=== PATIENT | female | born 1990 | race Caucasian/White ===

== ENCOUNTER 2020-02-28 21:21 | Emergency (ER) | payer MEDICAID ==
[~2020-02-28] VITALS: Ht 162.6 cm; Wt 68.0 kg
[2020-02-28 22:13] VITALS: BP 102/66
[2020-02-28] MEDS ORDERED: KETOROLAC TROMETHAMINE INJ 60 MG/2 ML VIAL IM ONE ×2 (22:30→23:07)
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
--- NOTE | 2020-02-28 22:51 | NUR ---
TAKEN TO CT BY TURNING AND BEADING MACHINE OPERATOR
--- NOTE | 2020-02-28 23:00 | NUR ---
RETURNED FROM CT VIA WHEELCHAIR BY BLOOD SPLATTER ANALYST.
--- NOTE | 2020-02-29 00:19 | NUR ---
PATIENT IS AMBULATORY WITH A STEADY GAIT. PRESCRIPTIONS PROVIDED AND EXPLAINED TO THE PAITNET.
--- NOTE | 2020-02-29 00:19 | NUR ---
Patient discharged to home in stable condition. Written and verbal after care instructions given. Patient verbalizes understanding of instruction.
== END 2020-02-29 00:20 | disposition home or self-care (01) ==
LOC: ER 21:28
DX: M54.42 Lumbago with sciatica, left side (principal); M79.7 Fibromyalgia; V49.49XA Driver injured in collision with other motor vehicles in traffic accident, initial encounter; Y93.89 Activity, other specified; Y92.488 Other paved roadways as the place of occurrence of the external cause; Y99.8 Other external cause status
CPT/HCPCS: 72125; 96372; 99284; J1885

== ENCOUNTER 2021-02-25 09:49 | Inpatient (IN) | payer MEDICAID, OTHER ==
[~2021-02-25] VITALS: Ht 162.6 cm; Wt 72.6 kg
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
[2021-02-25] MEDS ORDERED: oxyCODONE/APAP (5/325 MG) 1 UDTAB TABLET ONE (10:25)
[2021-02-25] MEDS ORDERED: KETOROLAC TROMETHAMINE INJ 30 MG/ML VIAL ONE (10:29)
[2021-02-25] MEDS ORDERED: LIDOCAINE 1% INJ 50 ML MDV IJ ONE (10:30)
[2021-02-25] MEDS ORDERED: TDAP [DIPH/PERTUSSIS/TET] 0.5 ML VIAL IM ONE ×2 (10:30→10:36)
[2021-02-25] MEDS ORDERED: oxyCODONE/APAP (5/325 MG) 1 UDTAB TABLET PO ONE (10:30)
[2021-02-25] MEDS ORDERED: KETOROLAC TROMETHAMINE INJ 60 MG/2 ML VIAL IM ONE (10:30)
--- NOTE | 2021-02-25 10:40 | NUR ---
WOUND BEING CLEANED BY JOYCELYN RICARDO
[2021-02-25] MEDS ORDERED: OXYC-128 PO (10:58)
[2021-02-25] MEDS ORDERED: IBUP-1955 PO (10:58)
[2021-02-25] MEDS ORDERED: CEPH500C2 PO (10:59)
[2021-02-25] MEDS ORDERED: LORAZEPAM INJ 2 MG/ML VIAL ONE (11:15)
--- NOTE | 2021-02-25 11:29 | NUR ---
IV LINE ESTABLISHED @ [facility] G18
[2021-02-25] MEDS ORDERED: LORAZEPAM INJ 2 MG/ML VIAL IV ONE (11:30)
[2021-02-25] MEDS ORDERED: IV NS 0.9% 1,000 ML BAG IV ONE (11:30)
[2021-02-25 11:34] LABS: BASOPHILS % (AUTO) 0.4 % (0.0-2.0); EOSINOPHILS % (AUTO) 0.6 % (0.0-6.0); HEMATOCRIT 42 % (33-45); HEMOGLOBIN 14.7 g/dL (11.5-14.8); LYMPHOCYTES # (AUTO) 2.1 K/uL (0.8-4.8); LYMPHOCYTES % (AUTO) 23.8 % (20.0-44.0); MEAN CORPUSCULAR HGB CONC 35 g/dl (31.0-36.0); MEAN CORPUSCULAR VOLUME 94 fL (82-100); MONOCYTES # (AUTO) 0.6 K/uL (0.1-1.30); MONOCYTES % (AUTO) 6.7 % (2.0-12.0); NEUTROPHILS # (AUTO) 6.1 K/uL (1.8-8.9); NEUTROPHILS % (AUTO) 68.5 % (43.0-81.0); PLATELET COUNT (AUTO) 256 K/uL (150-450); RED BLOOD CELL COUNT(AUTO) 4.47 MIL/uL (4.0-5.2); WHITE BLOOD COUNT (AUTO) 8.8 K/uL (4.3-11.0)
[2021-02-25 11:48] LABS: CALCIUM, SERUM 9.2 mg/dL (8.5-10.1); CREATININE 0.6 mg/dL (0.6-1.3); POTASSIUM 3.9 mmol/L (3.5-5.1)
[2021-02-25 11:53] LABS: ALBUMIN 4.5 g/dL (3.4-5.0); BILIRUBIN,DIRECT 0.2 mg/dL (0.0-0.2); BILIRUBIN,TOTAL 0.7 mg/dL (0.2-1.0); TOTAL PROTEIN, SERUM 8.2 g/dL (6.4-8.2)
[2021-02-25] MEDS ORDERED: ONDANSETRON HCL/PF 4 MG/2 ML VIAL IVP PRN (13:00)
[2021-02-25] MEDS ORDERED: HYDROCODONE/APAP 5/325MG TABLET PO PRN (13:00)
[2021-02-25] MEDS ORDERED: ACETAMINOPHEN 325 MG TABLET PO PRN (13:00)
--- NOTE | 2021-02-25 14:29 | NUR ---
ROOM: [facility]
--- NOTE | 2021-02-25 14:32 | NUR ---
ROOM 322-2
--- NOTE | 2021-02-25 14:44 | NUR ---
SPOKE TO NURSE NELLIE GIVEN REPORT. ROOM UPDATE: 162-8
--- NOTE | 2021-02-25 15:00 | NUR ---
RN NOTE PT AWAKE IN BED RESTING. ADMITTED FOR L FOOT INJURY. ON RA WITH NO SOB OR RESPIRATORY DISTRESS PRESENT. A/O X4 AND NAMIBIAN SPEAKING. COMPLAINT OF PAIN , PAIN MEDS TO BE GIVEN PER PROTOCOL. NO COMPLAINT OF NAUSEA. NO BUSINESS OBJECTS REPORT DEVELOPER. NO EDEMA PRESENT. PT IS UNABLE TO AMBULATE DUE TO FOOT INJURY. SKIN ASSESSMENT UNABLE TO BE DONE DUE TO PAIN. NPO POST MIDNIGHT FOR PROCEDURE. IV PRESENT ON R AC 18G AND FLUSHES WELL. LABS AND ORDERS REVIEWED. SAFETY MEASURES IN PLACE. SIDE RAILS RAISED. BED LOWERED. CALL LIGHT WITHIN REACH. WILL CONTINUE TO MONITOR.
--- NOTE | 2021-02-25 15:02 | NUR ---
Patient discharged to room 323-2 stable condition.
[2021-02-25] MEDS: HYDROCODONE/APAP 10/325MG TABLET PO PRN ×2 (15:40→20:36)
[2021-02-25] MEDS: GABAPENTIN 300 MG CAPSULE PO SCH (17:10)
--- NOTE | 2021-02-25 18:40 | NUR ---
RN CLOSING NOTE PT AWAKE IN BED RESTING. ON RA WITH NO SOB OR RESPIRATORY DISTRESS PRESENT. A/O X4 AND PERSIAN SPEAKING. NO COMPLAINT OF PAIN. NO COMPLAINT OF NAUSEA. NO NURSE ORTHOPAEDIC. NO EDEMA PRESENT. PT IS UNABLE TO AMBULATE DUE TO FOOT INJURY. NPO POST MIDNIGHT FOR PROCEDURE. IV PRESENT ON R AC 18G AND FLUSHES WELL. LABS AND ORDERS REVIEWED. ROUTINE MEDS GIVEN. SAFETY MEASURES IN PLACE. SIDE RAILS RAISED. BED LOWERED. CALL LIGHT WITHIN REACH. WILL GIVE REPORT TO NIGHT NURSE FOR LISSET.
[2021-02-25 20:00] VITALS: BP 120/91
--- NOTE | 2021-02-25 20:00 | NUR ---
RN NOTES RECEIVE IN ROOM, ALERT AND ORIENTED X4, ROOM AIR, COMPLAINING OF LEFT FOOT PAIN, LEFT FOOT WITH PEDRO WRAP, AMBULATES USING CRUTCHES. GIVEN PILLOWS TO ELEVATE LEFT FOOT, WILL CONTINUE TO MONITOR.
[2021-02-25] MEDS: IV NS 0.9% 1,000 ML IV PRN (23:29)
[2021-02-26] MEDS: HYDROCODONE/APAP 10/325MG TABLET PO PRN ×5 (01:10→23:42)
[2021-02-26] MEDS ORDERED: MORPHINE SULFATE INJ 2 MG/ML DISP.SYRIN IM PRN (02:00)
[2021-02-26] MEDS ORDERED: BUPIVACAINE MPF W/EPI 0.25% 30 ML VIAL ONE (06:18)
[2021-02-26] MEDS ORDERED: BACITRACIN ZINC OINT PACKET 1 EA PACKET TP ONE (06:18)
[2021-02-26] MEDS ORDERED: BUPIVACAINE 0.25% 75 MG/30 ML VIAL ONE (06:18)
[2021-02-26] MEDS ORDERED: LIDOCAINE 1% INJ 50 ML MDV IJ ONE (06:18)
[2021-02-26] MEDS ORDERED: VANCOMYCIN 1 GM VIAL ONE (06:18)
[2021-02-26] MEDS ORDERED: BACITRACIN 50000 UNITS/VIAL ONE (06:19)
[2021-02-26 06:51] LABS: CALCIUM, SERUM 8.3 mg/dL (8.5-10.1); CREATININE 0.7 mg/dL (0.6-1.3); MAGNESIUM 1.8 mg/dL (1.8-2.4); POTASSIUM 4.2 mmol/L (3.5-5.1)
[2021-02-26] MEDS ORDERED: MIDAZOLAM HCL 2 MG/2ML VIAL ONE (06:51)
[2021-02-26] MEDS ORDERED: FENTANYL PF 100MCG/2ML AMPUL ONE (06:51)
--- NOTE | 2021-02-26 07:07 | NUR ---
Alert/oriented x4, room air, left foot ruptured tendon, pain managed by [place] 1 tab, left foot NWB, denies numbess, ambulates with crutches, scheduled left foot tendon repair 02/27/21 at 0700, NPO since after midnight, NS at 75ml/hr, consent signed
[2021-02-26 07:17] LABS: THYROID STIMULATING HORMONE 2.585 uIU/mL (0.358-3.74)
--- NOTE | 2021-02-26 07:53 | NUR ---
MS RN OPENING NOTE PATIENT IS CURRENTLY IN SURGERY. RECEIVED REPORT FROM CUT PLUG PACKER NURSE.
[2021-02-26] MEDS ORDERED: DESFLURANE 240 ML BOTTLE IH ONE (08:07)
[2021-02-26] MEDS ORDERED: HYDROCODONE/APAP 5/325MG TABLET PO PRN (09:30)
[2021-02-26] MEDS: GABAPENTIN 300 MG CAPSULE PO SCH ×2 (09:59→16:07)
[2021-02-26] MEDS: DULOXETINE HCL 30 MG CAPSULE.DR PO SCH (09:59)
[2021-02-26] MEDS ORDERED: CALCIUM CARBONATE 500 MG TAB.CHEW PO PRN (11:00)
[2021-02-26] MEDS ORDERED: CALCIUM CARBONATE 500 MG TAB.CHEW PO SCH (11:00)
[2021-02-26 11:12] LABS: BASOPHILS % (AUTO) 0.7 % (0.0-2.0); EOSINOPHILS % (AUTO) 2.4 % (0.0-6.0); HEMATOCRIT 39 % (33-45); HEMOGLOBIN 13.4 g/dL (11.5-14.8); LYMPHOCYTES # (AUTO) 2.8 K/uL (0.8-4.8); LYMPHOCYTES % (AUTO) 45.3 % (20.0-44.0); MEAN CORPUSCULAR HGB CONC 35 g/dl (31.0-36.0); MEAN CORPUSCULAR VOLUME 96 fL (82-100); MONOCYTES # (AUTO) 0.6 K/uL (0.1-1.30); MONOCYTES % (AUTO) 9.7 % (2.0-12.0); NEUTROPHILS # (AUTO) 2.6 K/uL (1.8-8.9); NEUTROPHILS % (AUTO) 41.9 % (43.0-81.0); PLATELET COUNT (AUTO) 205 K/uL (150-450); RED BLOOD CELL COUNT(AUTO) 4.03 MIL/uL (4.0-5.2); WHITE BLOOD COUNT (AUTO) 6.2 K/uL (4.3-11.0)
[2021-02-26] MEDS: CYCLOBENZAPRINE 10 MG TABLET PO SCH ×2 (12:18→16:07)
[2021-02-26] MEDS: MORPHINE SULFATE INJ 2 MG/ML DISP.SYRIN IV PRN ×2 (13:01→21:17)
[2021-02-26] MEDS: ANCEF 1 GM/50 ML D5W IV SCH ×2 (13:03→21:17)
[2021-02-26] MEDS: IV NS 0.9% 1,000 ML IV PRN (15:10)
[2021-02-26 16:00] VITALS: BP 105/59
--- NOTE | 2021-02-26 18:14 | NUR ---
MS RN CLOSING NOTE PATIENT CURRENTLY LYING IN BED, AWAKE, WATCHING TV. A/O X4. S/P LEFT FOOT TENDON REPAIR. STABLE ON ROOM AIR - NO SOB NOTED. NO DISTRESS/DISCOMFORT NOTED. LAST PAIN MEDICATION GIVEN @ 1422 - NORCO 10-325MG PO. PATIENT COMPLAINS OF PAIN QUITE FREQUENTLY DUE TO FIBROMYALGIA. IV ACCESS TO RIGHT AC #18 - RUNNING NS @ 75ML/HR. PATIENT IS NON WEIGHT BEARING ON THE LEFT LEG - USES CRUTCHES TO GET TO THE BATHROOM. POSSIBLE DC TOMORROW. SAFETY MEASURES IN PLACE. CALL LIGHT WITHIN REACH. WILL ENDORSE TO INSECT CONTROL AIDE NURSE FOR LISSET.
[2021-02-26 20:00] VITALS: BP 119/74
--- NOTE | 2021-02-26 20:13 | NUR ---
RN NOTES PATIENT REQUESTING IVF, HAS EXISTING NS AT 75 ML/HR, PATIENT WANTS MORE FLUIDS, NOT SURE IF PATIENT WANTS HIGHER INFUSION RATE OR MORE BAGS OF FLUID. EXPLAINED TO PATIENT SINCE NO LONGER NPO, CAN DRINK MORE WATER. PATIENT GOT VERY UPSET, CRYING, SCREAMING, CLAIMING NEEDS MORE FLUIDS BECAUSE OF DEHYDRATION, LABS ARE WNL. PATIENT ALSO STARTED ACCUSING THIS RN OF NOT GIVING PAIN MEDS ON TIME LAST SHIFT (02/25/21). MOTHER IS PRESENT IN ROOM, PATIENT IS UPSET WITH HER TOO THIS RN SPOKE TO MOTHER IN PRIVATE EXPLAINING WHAT HAPPENED LAST SHIFT. NOTIFIED CATALOGING ASSISTANT [place] TO SWITCH RN.
--- NOTE | 2021-02-26 20:20 | NUR ---
MS/RN OPENING NOTE RECEIVED PATIENT RESTING IN BED. AWAKE, ALERT AND ORIENTED X 4. ABLE TO MAKE NEEDS KNOWN. DENIES PAIN AT THIS TIME. CONTINUES ON ROOM AIR WITH NO S/SX OF RESPIRATORY DISTRESS NOTED. IV PLACED TO LEFT WRIST #20G. CONTINUES ON NS 0.9% @75ML/HR. CONTINUES ON IV ABX. LEFT FOOT WITH PEDRO WRAP IN PLACE. PEDRO WRAP IS CLEAN, DRY AND INTACT. PATIENT AMBULATING WITH CRUTCHES. CALL LIGHT WITHIN REACH. ASPIRATION, FALL AND SAFETY PRECAUTIONS MAINTAINED. WILL CONTINUE TO MONITOR.
--- NOTE | 2021-02-26 22:00 | NUR ---
MS/RN NOTE PATIENT WITH C/O INCREASED ANXIETY - REQUESTING PRN ATIVAN. NOTIFIED ANTIQUE FURNITURE RESTORER JANNETTE BUSTOS WITH NEW ORDER FOR ONE TIME DOSE ATIVAN. ORDER CARRIED OUT.
[2021-02-26] MEDS ORDERED: LORAZEPAM 0.5 MG TABLET PO ONE (23:30)
[2021-02-27] MEDS ORDERED: CYCLOBENZAPRINE 10 MG TABLET PO ONE
--- NOTE | 2021-02-27 | NUR ---
MS/RN NOTE PATIENT WITH C/O INCREASED SPASMS TO LLE AND LEFT FOOT. NOTIFIED AIRCRAFT BODY REPAIRER JANNETTE BUSTOS WITH NEW ORDER FOR ONE TIME DOSE FLEXARIL. ORDER CARRIED OUT.
[2021-02-27] MEDS: MORPHINE SULFATE INJ 2 MG/ML DISP.SYRIN IV PRN ×5 (00:18→20:45)
[2021-02-27] MEDS: HYDROCODONE/APAP 10/325MG TABLET PO PRN ×5 (03:47→23:59)
[2021-02-27] MEDS: IV NS 0.9% 1,000 ML IV PRN ×2 (05:45→17:41)
[2021-02-27] MEDS: ANCEF 1 GM/50 ML D5W IV SCH (05:46)
--- NOTE | 2021-02-27 06:35 | NUR ---
MS/RN CLOSING NOTE PATIENT CURRENTLY RESTING IN BED. ALERT AND ORIENTED X 4. ABLE TO MAKE NEEDS KNOWN. DENIES PAIN AT THIS TIME. CONTINUES ON ROOM AIR WITH NO S/SX OF RESPIRATORY DISTRESS NOTED. IV ACCESS TO LEFT WRIST #20G INTACT AND PATENT. CONTINUES ON NS 0.9% @ 75ML/HR. CONTINUES ON IV ABX. LEFT FOOT WITH PEDRO WRAP IN PLACE. PEDRO WRAP IS CLEAN, DRY AND INTACT. PATIENT AMBULATING WITH CRUTCHES. NWB TO LLE. CALL LIGHT WITHIN REACH. ASPIRATION, FALL AND SAFETY PRECAUTIONS MAINTAINED. WILL ENDORSE PLAN OF CARE TO ONCOMING SHIFT.
--- NOTE | 2021-02-27 07:35 | NUR ---
MS RN OPENING NOTE RECEIVED PATIENT SITTING UP IN BED, EATING BREAKFAST. AWAKE, A/O X4. STABLE ON ROOM AIR - NO SOB NOTED, NO DISTRESS/DISCOMFORT NOTED. DENIES PAIN AT THIS TIME. IV ACCESS TO LEFT WRIST #20 - RUNNING NS @ 75ML/HR. LEFT FOOT WITH PEDRO WRAP IN PLACE. PEDRO WRAP IS CLEAN, DRY AND INTACT. PATIENT AMBULATING WITH CRUTCHES. SAFETY MEASURES IN PLACE. CALL LIGHT WITHIN REACH. WILL CONTINUE TO MONITOR.
[2021-02-27 08:00] VITALS: BP 144/83
[2021-02-27] MEDS: DULOXETINE HCL 30 MG CAPSULE.DR PO SCH (08:19)
[2021-02-27] MEDS: CYCLOBENZAPRINE 10 MG TABLET PO SCH ×3 (08:19→16:29)
[2021-02-27] MEDS: GABAPENTIN 300 MG CAPSULE PO SCH ×2 (08:19→16:29)
[2021-02-27] MEDS: CEFAZOLIN 1 GM in IV D5W 50 ML IV SCH ×2 (12:17→20:45)
[2021-02-27 16:00] VITALS: BP 129/75
--- NOTE | 2021-02-27 18:17 | NUR ---
MS RN CLOSING NOTE PATIENT CURRENTLY LYING IN BED, AWAKE, WATCHING TV. A/O X4. S/P LEFT FOOT TENDON REPAIR. STABLE ON ROOM AIR - NO SOB NOTED. NO DISTRESS/DISCOMFORT NOTED. S/P LEFT FOOT TENDON REPAIR. PEDRO BANDAGE/CAST TO LEFT LEG/FOOT, WITH PIN IN TOE. THE PIN IS COVERED WITH GAUZE AND TAPE IN CASE OF SNAGGING OR BUMPING. LAST PAIN MEDICATION GIVEN @ 1742 - MORPHINE 2MG IV. PATIENT COMPLAINS OF PAIN QUITE FREQUENTLY DUE TO FIBROMYALGIA. IV ACCESS TO LEFT WRIST #18 - RUNNING NS @ 75ML/HR. PATIENT IS NON WEIGHT BEARING ON THE LEFT LEG - USES CRUTCHES TO GET TO THE BATHROOM. SAFETY MEASURES IN PLACE. CALL LIGHT WITHIN REACH. WILL ENDORSE TO PAYROLL MANAGER NURSE FOR LISSET.
--- NOTE | 2021-02-27 19:00 | NUR ---
MS RN OPENING NOTES RECEIVED PT AWAKE IN BED, EATING AT THIS TIME. A/O X4. ABLE TO VERBALIZE NEEDS. NO S/O OF ANY ACUTE DISTRESS NOTED, DENIES PAIN AT THIS TIME. PT ON RA, RECEIVING DIALYSIS RIGHT FEMORAL CATH, HD OUTPUT OF 3000ML, IV ACCESS IN R WRIST G #20 INTACT, PATENT AND FLUSHING WELL. SAFETY PRECAUTIONS IN PLACE AND MAINTAINED AT ALL TIMES. BED IN LOWEST LOCKED POSITION, HOB ELEVATED, SIDE RAILS UP X2, CALL LIGHT AND TABLE WITHIN REACH. WILL CONTINUE TO MONITOR Addendum: 02/27/21 at 1951 by JAVIER VICKERS RN MS RN OPENING NOTES RECEIVED PT AWAKE IN BED, EATING AT THIS TIME. A/O X4. ABLE TO VERBALIZE NEEDS. NO S/O OF ANY ACUTE DISTRESS NOTED, DENIES PAIN AT THIS TIME. PT ON RA, IV ACCESS IN R WRIST G #20 INTACT, PATENT AND FLUSHING WELL. SAFETY PRECAUTIONS IN PLACE AND MAINTAINED AT ALL TIMES. BED IN LOWEST LOCKED POSITION, HOB ELEVATED, SIDE RAILS UP X2, CALL LIGHT AND TABLE WITHIN REACH. WILL CONTINUE TO MONITOR
[2021-02-27 20:00] VITALS: BP 104/62
--- NOTE | 2021-02-27 20:08 | NUR ---
PT C/O ACHING, THROBBING 9/10 PAIN ON HER R FOOT, BP 104/62, HR 82, RR 18, T 98.0, SPO2 98, ON RA PER PT REQUEST NORCO 10-325 PO Q4HR PRN ADMINISTERED PER ORDER. WILL CONTINUE TO MONITOR
--- NOTE | 2021-02-27 20:45 | NUR ---
PT C/O ACHING, THROBBING 9/10 PAIN ON HER R FOOT, VS WNL PER PT REQUEST MORPHINE 2MG/1ML IV Q3H PRN ADMINISTERED PER ORDER. WILL CONTINUE TO MONITOR
--- NOTE | 2021-02-27 23:59 | NUR ---
PT C/O ACHING, THROBBING 9/10 PAIN ON HER L FOOT, VS WNL ON RA PER PT REQUEST NORCO 10-325 PO Q4HR PRN ADMINISTERED PER ORDER. WILL CONTINUE TO MONITOR
[2021-02-28] MEDS: MORPHINE SULFATE INJ 2 MG/ML DISP.SYRIN IV PRN ×7 (01:31→22:17)
--- NOTE | 2021-02-28 01:31 | NUR ---
PT C/O ACHING, THROBBING 9/10 PAIN ON HER L FOOT, VS WNL PER PT REQUEST MORPHINE 2MG/1ML IV Q3H PRN ADMINISTERED PER ORDER. WILL CONTINUE TO MONITOR
[2021-02-28] MEDS: CEFAZOLIN 1 GM in IV D5W 50 ML IV SCH (04:26)
[2021-02-28] MEDS: HYDROCODONE/APAP 10/325MG TABLET PO PRN ×4 (05:41→21:20)
--- NOTE | 2021-02-28 05:41 | NUR ---
PT C/O ACHING, THROBBING ON HER LEFT FOOT PER PT REQUEST NORCO 10-325 PO Q4HR PRN ADMINISTERED PER ORDER. WILL CONTINUE TO MONITOR
--- NOTE | 2021-02-28 06:00 | NUR ---
PT AWAKE IN BED . NO RESPIRATORY DISTRESS OR DISCOMFORT. WILL ENDORSE TO DAY SHIFT RN FOR LISSET.
[2021-02-28 08:00] VITALS: BP 124/76
[2021-02-28] MEDS: GABAPENTIN 300 MG CAPSULE PO SCH ×2 (08:37→16:13)
[2021-02-28] MEDS: DULOXETINE HCL 30 MG CAPSULE.DR PO SCH (08:37)
[2021-02-28] MEDS: CYCLOBENZAPRINE 10 MG TABLET PO SCH ×3 (08:38→16:12)
[2021-02-28 16:00] VITALS: BP 137/94
[2021-02-28 20:00] VITALS: BP 115/75
--- NOTE | 2021-02-28 20:00 | NUR ---
MS RN OPENING NOTES PATIENT ALERT/ORIENTED X 4, PT ABLE TO MAKE NEEDS KNOWN. PT STABLE ON RA, NO S/S OF DISTRESS OR SOB NOTED, BREATHING EVEN AND UNLABORED. LEFT WRIST IV ACCESS LEAKING, REMOVED IV AND NEW IV INSERTED ON RIGHT WRIST #20G, INTACT AND FLUSHING WELL. PATIENT IS AMBULATORY WITH CRUTCHES, NON-WEIGHT BEARING ON LEFT LEG. LEFT LEG DRESSING CLEAN, DRY AND INTACT. PATIENT REPORTING 9/10 PAIN, WILL GIVE PAIN MEDICATION ORDERED. SAFETY MEASURES IN PLACE, CALL LIGHT WITH REACH, BED LOCKED IN LOWEST POSITION, SIDE RAILS UP X 2. WILL CONTINUE TO MONITOR THROUGHOUT SHIFT.
--- NOTE | 2021-02-28 20:10 | NUR ---
MS RN NOTE PATIENT REPORTING 9/10 PAIN, COMBINATION OF LEFT FOOT PAIN AND FIBROMYALGIA PAIN. PT REQUESTING PAIN MEDICATION, MORPHINE 2 MG IV GIVEN ORDERED. WILL CONTINUE TO MONITOR.
--- NOTE | 2021-02-28 21:20 | NUR ---
MS RN NOTE PATIENT REPORTING 7/10 PAIN, COMBINATION OF LEFT FOOT PAIN AND FIBROMYALGIA PAIN. PT REQUESTING PAIN MEDICATION, NORCO 10-325 PO Q4H GIVEN ORDERED. WILL CONTINUE TO MONITOR.
[2021-02-28] MEDS: IV NS 0.9% 1,000 ML IV PRN (21:27)
[2021-02-28] MEDS ORDERED: DULOXETINE HCL 30 MG CAPSULE.DR PO ONE (21:30)
[2021-03-01] MEDS: MORPHINE SULFATE INJ 2 MG/ML DISP.SYRIN IV PRN ×10 (00:18→20:44)
[2021-03-01] MEDS: HYDROCODONE/APAP 10/325MG TABLET PO PRN ×3 (01:29→14:03)
[2021-03-01 08:00] VITALS: BP 141/77
--- NOTE | 2021-03-01 08:00 | NUR ---
RN OPENING NOTE PT AWAKE IN BED RESTING. ON RA WITH NO SOB OR RESPIRATORY DISTRESS PRESENT. A/O X4 AND LITHUANIAN SPEAKING. COMPLAINT OF PAIN. PAIN MEDS TO BE GIVEN PER PROTOCOL. NO COMPLAINT OF NAUSEA. NO DIRECTOR OF CONSUMER MARKETING. NO EDEMA PRESENT. AMBULATORY WITH CRUTCH ASSIST. L FOOT SPLINT IN PLACE POSTOP. IV PRESENT ON R WRIST 20G AND FLUSHES WELL. LABS AND ORDERS REVIEWED. ROUTINE MEDS GIVEN. SAFETY MEASURES IN PLACE. SIDE RAILS RAISED. BED LOWERED. CALL LIGHT WITHIN REACH. WILL CONTINUE TO MONITOR.
[2021-03-01] MEDS: CYCLOBENZAPRINE 10 MG TABLET PO SCH ×3 (08:02→16:18)
[2021-03-01] MEDS: GABAPENTIN 300 MG CAPSULE PO SCH ×2 (08:03→16:18)
[2021-03-01] MEDS ORDERED: DULOXETINE HCL 30 MG CAPSULE.DR PO SCH (09:00)
--- NOTE | 2021-03-01 11:30 | NUR ---
RN NOTE 2 MG MORPHINE GIVEN IVP, PAIN 10/10. CURRENTLY PERFORMING WOUND CARE WITH DR ORTIZ AT BEDSIDE. WILL CONTINUE TO MONITOR.
[2021-03-01 16:00] VITALS: BP 133/90
[2021-03-01] MEDS ORDERED: oxyCODONE/APAP (5/325 MG) 1 UDTAB TABLET PO PRN (16:00)
[2021-03-01] MEDS: DULOXETINE HCL 30 MG CAPSULE.DR PO SCH (16:18)
--- NOTE | 2021-03-01 17:53 | NUR ---
RN NOTE CONTACTED DR JACKSON ABOUT DR TAVARES RECOMMENDATIONS FOR PAIN MANAGEMENT POST DISCHARGE. DR JACKSON SAID HE'LL CONTACT [facility] WELDER BOILERMAKER ABOUT PRESCRIPTIONS. STATED THAT PATIENT MAY STAY OVERNIGHT DUE TO PRESENTED ISSUE. CONTACTED CN. WILL CONTINUE TO MONITOR PT.
--- NOTE | 2021-03-01 17:56 | NUR ---
RN CLOSING NOTE PT AWAKE IN BED RESTING. ON RA WITH NO SOB OR RESPIRATORY DISTRESS PRESENT. A/O X4 AND DIVEHI SPEAKING. COMPLAINT OF PAIN. PAIN MEDS TO BE GIVEN PER PROTOCOL. NO COMPLAINT OF NAUSEA. NO LIGHT RAIL TRANSIT OPERATOR. NO EDEMA PRESENT. AMBULATORY WITH CRUTCH ASSIST. IV PRESENT ON R WRIST 20G AND FLUSHES WELL. LABS AND ORDERS REVIEWED. ROUTINE MEDS GIVEN. SAFETY MEASURES IN PLACE. SIDE RAILS RAISED. BED LOWERED. CALL LIGHT WITHIN REACH. WILL GIVE REPORT TO NIGHT NURSE FOR LISSET.
[2021-03-01] MEDS ORDERED: OXYC1TAB8 PO (18:03)
[2021-03-01] MEDS ORDERED: DULO30CA2 PO (18:03)
[2021-03-01] MEDS ORDERED: GABA300C PO (18:03)
[2021-03-01 20:00] VITALS: BP 125/80
--- NOTE | 2021-03-01 20:00 | NUR ---
MS RN OPENING NOTES PATIENT ALERT/ORIENTED X 4, PT ABLE TO MAKE NEEDS KNOWN. PT STABLE ON RA, NO S/S OF DISTRESS OR SOB NOTED, BREATHING EVEN AND UNLABORED. RIGHT WRIST #20G, INTACT AND FLUSHING WELL, SALINE LOCKED. PATIENT IS AMBULATORY WITH CRUTCHES, NON-WEIGHT BEARING ON LEFT LEG. LEFT LEG DRESSING CLEAN, DRY AND INTACT. PATIENT HAS NO NEEDS AT THIS TIME. SAFETY MEASURES IN PLACE, CALL LIGHT WITH REACH, BED LOCKED IN LOWEST POSITION, SIDE RAILS UP X 2. WILL CONTINUE TO MONITOR THROUGHOUT SHIFT.
[2021-03-01] MEDS: oxyCODONE/APAP (5/325 MG) 1 UDTAB TABLET PO PRN (23:46)
[2021-03-02] MEDS: MORPHINE SULFATE INJ 2 MG/ML DISP.SYRIN IV PRN ×4 (03:15→12:23)
--- NOTE | 2021-03-02 06:20 | NUR ---
MS RN CLOSING NOTES PATIENT SLEEPING IN BED. PT STABLE ON RA, NO S/S OF DISTRESS OR SOB NOTED, BREATHING EVEN AND UNLABORED. RIGHT WRIST #20G, INTACT AND FLUSHING WELL, SALINE LOCKED. PATIENT IS AMBULATORY WITH CRUTCHES, NON-WEIGHT BEARING ON LEFT LEG. LEFT LEG DRESSING CLEAN, DRY AND INTACT. MEDICATIONS GIVEN ORDERED, NEEDS MET THROUGHOUT SHIFT. SAFETY MEASURES IN PLACE, CALL LIGHT WITH REACH, BED LOCKED IN LOWEST POSITION, SIDE RAILS UP X 2. WILL ENDORSE TO DAY SHIFT NURSE FOR CONTINUITY OF CARE
[2021-03-02] MEDS: oxyCODONE/APAP (5/325 MG) 1 UDTAB TABLET PO PRN (06:41)
--- NOTE | 2021-03-02 07:50 | NUR ---
MS RN OPENING NOTE PATIENT IS IN BED RESTING, PATIENT IS IN NO ACUTE DISTRESS. PATIENT IS ON ROOM AIR SATURATING WELL. SAFETY PRECAUTIONS ARE ON, BED IS LOCKED IN THE LOWEST POSITION WITH SIDE RAILS UP, CALL LIGHT WITHIN REACH. WILL CONTINUE TO MONITOR.
[2021-03-02 08:00] VITALS: BP 131/95
[2021-03-02] MEDS: GABAPENTIN 300 MG CAPSULE PO SCH (08:13)
[2021-03-02] MEDS: DULOXETINE HCL 30 MG CAPSULE.DR PO SCH (08:14)
[2021-03-02] MEDS: CYCLOBENZAPRINE 10 MG TABLET PO SCH (08:14)
--- NOTE | 2021-03-02 12:43 | NUR ---
MS HARNESS WORKER NOTE PATIENT IS MEDICALLY STABLED BE DISCHARGED. PATIENT IS IN NO ACUTE DISTRESS. PATIENTS NEEDS ATTENDED DURING THE STAY. DISCHARGE INSTRUCTIONS PROVIDED, PATIENT VERBALIZED UNDERSTANDING. PATIENT SKIN IS INTACT. PATIENT LEFT FOOT HAS A BOOT FROM THE SURGERY. PATIENT IV ACCESS AND ID BAND REMOVED. PATIENT WILL FOLLOW UP WITH SURGEON. PATIENT BEING PICKED UP BY HER FATHER. MD IS AWARE OF DISCHARGE.
== END 2021-03-02 12:30 | disposition home health service (06) | DRG 314 ==
LOC: ER 09:52 → MED 14:50
PROVIDERS: ATTEND Hospitalist
PROC: 0QSR04Z Reposition Left Toe Phalanx with Internal Fixation Device, Open Approach (ICD-10-PCS; principal; 2021-02-26)
PROC: 0LQW0ZZ Repair Left Foot Tendon, Open Approach (ICD-10-PCS; 2021-02-26)
DX: S96.122A Laceration of muscle and tendon of long extensor muscle of toe at ankle and foot level, left foot, initial encounter (principal); Q79.60 Ehlers-Danlos syndrome, unspecified; M79.7 Fibromyalgia; W25.XXXA Contact with sharp glass, initial encounter; Y92.000 Kitchen of unspecified non-institutional (private) residence as the place of occurrence of the external cause; Z20.822 Contact with and (suspected) exposure to COVID-19; Z87.11 Personal history of peptic ulcer disease; Z76.5 Malingerer [conscious simulation]; F41.9 Anxiety disorder, unspecified
CPT/HCPCS: 36415; 71045-TC; 73620-TC; 80048-TC; 80061-TC; 80076-TC; 83690-TC; 83735-TC; 84100-TC; 84443-TC; 84702-TC; 85025-TC; 85730-TC; 87070-TC; 87075-TC; 87081-TC; 90715; 97112-TC; 97116-TC; 97530-TC; A6253; A6403; C9803; G0378; J0690; J1100; J1885; J2060; J2250; J2270; J2405; J2704; J3010; J3370; J3490; J7030; J7050; J7060

== ENCOUNTER 2021-03-08 11:16 | Outpatient (CLI) | payer OTHER ==
[~2021-03-08 11:16] MED LIST: DULO30CA2 PO; GABA300C PO; OXYC-128 PO; OXYC1TAB8 PO
== END 2021-03-08 23:59 | disposition home or self-care (01) ==
LOC: WOU 11:16
PROVIDERS: ATTEND Podiatrist Foot & Ankle Surgery
DX: Z48.817 Encounter for surgical aftercare following surgery on the skin and subcutaneous tissue (principal); M79.7 Fibromyalgia; M79.672 Pain in left foot; F17.210 Nicotine dependence, cigarettes, uncomplicated; S96.112D Strain of muscle and tendon of long extensor muscle of toe at ankle and foot level, left foot, subsequent encounter; X58.XXXD Exposure to other specified factors, subsequent encounter
CPT/HCPCS: G0463

== ENCOUNTER 2021-03-23 18:40 | Emergency (ER) | payer OTHER ==
[~2021-03-23] VITALS: Ht 165.1 cm; Wt 63.5 kg
--- NOTE | 2021-03-23 19:25 | NUR ---
PATIENT C/O LEFT FOOT PAIN, REQUESTING SUTURE REMOVAL. PATIENT LEFT FOOT SURGERY BACK IN JANUARY. ALSO C/O GENERALIZED BODY PAIN FROM FIBROMYALGIA. PATIENT IS A/O X 4, RR EVEN AND UNLABORED, NO SIGNS OF SOB NOTED. PATIENT CONNECTED TO CARDIAC AND POX MONITOR.
[2021-03-23] MEDS ORDERED: LET SOLN TOPICAL 8 ML UDC TP ONE ×2 (19:43)
[2021-03-23] MEDS ORDERED: ALPRAZOLAM 0.5 MG TABLET ONE (19:46)
[2021-03-23] MEDS: ALPRAZOLAM 0.5 MG TABLET PO ONE (19:48)
[2021-03-23] MEDS ORDERED: HYDROCODONE/APAP 5/325MG TABLET ONE (20:55)
[2021-03-23] MEDS: HYDROCODONE/APAP 5/325MG TABLET PO ONE (20:57)
--- NOTE | 2021-03-23 22:17 | NUR ---
ER DESTIN NASH SPOKE TO DR. MARQUEZ REGARDING PT.
[2021-03-23 22:37] VITALS: BP 126/74
--- NOTE | 2021-03-23 22:37 | NUR ---
Patient discharged to home in stable condition. Written and verbal after care instructions given. Patient verbalizes understanding of instruction.
== END 2021-03-23 22:40 | disposition home or self-care (01) ==
LOC: ER 18:40
DX: S96.82 Laceration of other specified muscles and tendons at ankle and foot level (principal); Z91.012 Allergy to eggs; Z88.1 Allergy status to other antibiotic agents; Z91.018 Allergy to other foods; Z60.2 Problems related to living alone; Z79.899 Other long term (current) drug therapy; X58.XXXD Exposure to other specified factors, subsequent encounter
CPT/HCPCS: 99283; A6403

== ENCOUNTER 2021-04-11 23:18 | Inpatient (IN) | payer OTHER ==
[~2021-04-11] VITALS: Ht 162.6 cm; Wt 68.9 kg
--- NOTE | 2021-04-11 23:35 | NUR ---
PT BIBS FOR STICHES AND PIN REMOVAL ON L FOOT. PT ALERT AND ORIENTED X4. AMBULATORY WITH CRUTCHES.
--- NOTE | 2021-04-12 00:22 | NUR ---
MANUFACTURER'S SERVICE REPRESENTATIVE @ BEDSIDE.
[2021-04-12] MEDS ORDERED: MORPHINE SULFATE INJ 4 MG/ML DISP.SYRIN ONE (00:39)
[2021-04-12] MEDS ORDERED: ONDANSETRON HCL/PF 4 MG/2 ML VIAL ONE (00:39)
[2021-04-12 00:42] LABS: BASOPHILS % (AUTO) 0.7 % (0.0-2.0); EOSINOPHILS % (AUTO) 2.6 % (0.0-6.0); HEMATOCRIT 40 % (33-45); HEMOGLOBIN 13.9 g/dL (11.5-14.8); LYMPHOCYTES # (AUTO) 2.8 K/uL (0.8-4.8); LYMPHOCYTES % (AUTO) 44.5 % (20.0-44.0); MEAN CORPUSCULAR HGB CONC 35 g/dl (31.0-36.0); MEAN CORPUSCULAR VOLUME 95 fL (82-100); MONOCYTES # (AUTO) 0.5 K/uL (0.1-1.30); MONOCYTES % (AUTO) 7.5 % (2.0-12.0); NEUTROPHILS # (AUTO) 2.9 K/uL (1.8-8.9); NEUTROPHILS % (AUTO) 44.7 % (43.0-81.0); PLATELET COUNT (AUTO) 277 K/uL (150-450); RED BLOOD CELL COUNT(AUTO) 4.26 MIL/uL (4.0-5.2); WHITE BLOOD COUNT (AUTO) 6.4 K/uL (4.3-11.0)
[2021-04-12] MEDS ORDERED: MORPHINE SULFATE INJ 2 MG/ML DISP.SYRIN IV ONE (01:00)
[2021-04-12] MEDS ORDERED: IV NS 0.9% 1,000 ML IV ONE (01:00)
[2021-04-12] MEDS ORDERED: ONDANSETRON HCL/PF 4 MG/2 ML VIAL IV ONE (01:00)
[2021-04-12 01:07] LABS: CALCIUM, SERUM 8.9 mg/dL (8.5-10.1); CREATININE 0.5 mg/dL (0.6-1.3); POTASSIUM 4.3 mmol/L (3.5-5.1)
--- NOTE | 2021-04-12 02:18 | NUR ---
REPORT GIVEN TO MARC VAUGHN
--- NOTE | 2021-04-12 02:20 | NUR ---
PT TRANSFERRED TO [facility]
--- NOTE | 2021-04-12 02:20 | NUR ---
TRANSFER NOTES RECEIVED PATIENT VIA GURNEY. PT IS AOx4. ABLE TO MAKE NEEDS KNOWN. ON ROOM AIR AND TOLERATING WELL. NO SOB NOTED. NO S/SX OF RESPIRATORY DISTRESS NOTED. IV ACCESS IN L AC #18 G. STATES PAIN IS 9/10. SAFETY PRECAUTIONS IN PLACE: BED IN LOWEST, LOCKED POSITION, BRAKES ON, SIDERAILS UPx2. CALL LIGHT AND TABLE WITHIN REACH. WILL CONTINUE TO MONITOR.
[2021-04-12] MEDS ORDERED: ONDANSETRON HCL/PF 4 MG/2 ML VIAL IVP PRN (02:30)
[2021-04-12] MEDS ORDERED: IV NS 0.9% 1,000 ML IV PRN (02:30)
[2021-04-12] MEDS: oxyCODONE/APAP (5/325 MG) 1 UDTAB TABLET PO PRN ×3 (03:12→16:30)
--- NOTE | 2021-04-12 03:12 | NUR ---
ADMINISTERED PERCOCET FOR PAIN, PER MD ORDER. WILL CONTINUE TO MONITOR.
[2021-04-12 04:18] VITALS: BP 141/52
[2021-04-12] MEDS: MORPHINE SULFATE INJ 2 MG/ML DISP.SYRIN IV PRN ×3 (05:08→19:34)
--- NOTE | 2021-04-12 05:09 | NUR ---
ADMINISTERED MORPHINE FOR PAIN, PER MD ORDER. VITAL SIGNS STABLE WILL CONTINUE TO MONITOR.
--- NOTE | 2021-04-12 06:41 | NUR ---
MS RN CLOSING NOTES PT IN BED, SLEEPING, AWAKENS TO VERBAL STIMULI. PT IS AOx4. ABLE TO MAKE NEEDS KNOWN. ON ROOM AIR AND TOLERATING WELL. NO SOB NOTED. NO S/SX OF RESPIRATORY DISTRESS NOTED. IV ACCESS IN R AC #18 G. TREATED PAIN THROUGHOUT SHIFT. ALL NEEDS MET. PT KEPT CLEAN AND DRY. SAFETY PRECAUTIONS IN PLACE: BED IN LOWEST, LOCKED POSITION, BRAKES ON, SIDERAILS UPx2. CALL LIGHT AND TABLE WITHIN REACH. WILL ENDORSE TO ONCOMING SHIFT.
--- NOTE | 2021-04-12 07:55 | NUR ---
MS/RN OPENING NOTES RECIEVED PT IN BED, SLEEPING, AWAKENS TO VERBAL STIMULI. PT IS AOx4. ABLE TO MAKE NEEDS KNOWN. ON ROOM AIR AND TOLERATING WELL. NO SOB NOTED. NO S/SX OF RESPIRATORY DISTRESS NOTED. IV ACCESS IN RIGHT AC #18G IS INTACT WITH A RUNNING NS @75ML/HR. SAFETY PRECAUTIONS IN PLACED: BED IN LOWEST, LOCKED POSITION, BRAKES ON, SIDERAILS UPx2. CALL LIGHT AND TABLE WITHIN REACH. WILL CONTINUE TO MONITOR PATIENT.
[2021-04-12 08:00] VITALS: BP 131/67
[2021-04-12] MEDS: PANTOPRAZOLE 40 MG VIAL IV SCH (08:45)
[2021-04-12] MEDS: GABAPENTIN 300 MG CAPSULE PO SCH ×3 (08:46→16:30)
[2021-04-12] MEDS: DULOXETINE HCL 30 MG CAPSULE.DR PO SCH ×2 (08:46→16:30)
[2021-04-12] MEDS ORDERED: ANESTHESIA TRAY IN PYXIS 1 EA TRAY MC ONE (10:13)
[2021-04-12] MEDS ORDERED: LIDOCAINE 1% INJ 50 ML MDV IJ ONE (10:13)
[2021-04-12] MEDS ORDERED: BUPIVACAINE MPF 0.5% W/EPI INJ 30 ML VIAL ONE (10:13)
--- NOTE | 2021-04-12 10:31 | NUR ---
MS/RN NOTES- SURGERY PATIENT WAS PICKED UP BY THE OR STAFF VIA [facility] FOR A PROCEDURE: REMOVAL OF PIN FIXATION FOOT. REMOVAL OF SUTURES LEFT FOOT. PATIENT IS ALERT AND ORIENTED X4, ABLE TO MAKE NEEDS KNOWN. STABLE ON ROOM AIR. V/S TAKEN AND WITHIN NORMAL. ALL CONSENTS SIGNED. NO DISCOMFORTS NOTED AT THIS TIME.
[2021-04-12] MEDS ORDERED: FENTANYL PF 100MCG/2ML AMPUL ONE (10:45)
[2021-04-12] MEDS ORDERED: MIDAZOLAM HCL 2 MG/2ML VIAL ONE (10:46)
[2021-04-12] MEDS ORDERED: CLINDAMYCIN 900 MG/6 ML VIAL ONE (11:08)
[2021-04-12] MEDS ORDERED: BUPIVACAINE 0.5 % PF 150 MG/30 ML VIAL ONE (11:17)
--- NOTE | 2021-04-12 12:30 | NUR ---
MS/RN NOTES- PATIENT CAME BACK FROM SURGERY. S/P REMOVAL OF PIN FIXATION FOOT. REMOVAL OF SUTURES LEFT FOOT. PATIENT IS ALERT AND ORIENTED X4, ABLE TO MAKE NEEDS KNOWN. V/S TAKEN AND RECORDED BP-126/95, HR-81, T-98.7, RR-18, O2 SAT AT 97% ROOM AIR. PER MD ORDER TO RESUME MEDS AND DIET. D/C PLANNING THIS AFTERNOON IF ABLE. WILL CONTINUE TO MONITOR.
[2021-04-12 16:00] VITALS: BP 159/77
--- NOTE | 2021-04-12 19:06 | NUR ---
MS/RN CLOSING NOTES PT IN BED, SLEEPING, AWAKENS TO VERBAL STIMULI. PT IS AOx4. ABLE TO MAKE NEEDS KNOWN. ON ROOM AIR AND TOLERATING WELL. NO SOB NOTED. NO S/SX OF RESPIRATORY DISTRESS NOTED. IV ACCESS IN RIGHT AC #18G IS INTACT WITH A RUNNING NS @75ML/HR. ALL NEEDS MET. SAFETY PRECAUTIONS IN PLACED: BED IN LOWEST, LOCKED POSITION, BRAKES ON, SIDERAILS UPx2. CALL LIGHT AND TABLE WITHIN REACH. WILL ENDORSE TO THE NEXT SHIFT FOR LISSET.
--- NOTE | 2021-04-12 19:34 | NUR ---
ms rn note patient c/o 9/10 pain in the L. foot. given Morphine 2mg PRN will continue to monitor.
--- NOTE | 2021-04-12 19:40 | NUR ---
ms rn opening received patient a/ox4. no s/s of apparent distress, tolerating room air. c/o pain -- will administer pain medication. patient ambulatory, able to make needs known. IV NS running @75 ml/hr, ONCE, almost finished with the bag. L. foot covered in bandages. safety in place. will cont. to monitor patient.
[2021-04-12 20:00] VITALS: BP 128/81
[2021-04-13] MEDS: MORPHINE SULFATE INJ 2 MG/ML DISP.SYRIN IV PRN ×3 (00:37→11:20)
--- NOTE | 2021-04-13 00:37 | NUR ---
ms rn note patient c/o 8/10 pain on the L. foot. given Morphine 2mg at this time. will cont. to monitor.
[2021-04-13] MEDS: oxyCODONE/APAP (5/325 MG) 1 UDTAB TABLET PO PRN ×3 (04:17→12:59)
--- NOTE | 2021-04-13 04:17 | NUR ---
ms rn note patient c/o Nausea and pain 04/08. given Zofran and Percocet (). will cont. to monitor.
--- NOTE | 2021-04-13 06:32 | NUR ---
ms rn note patient reports being constipated but denies any fullness in the abdomen right now. Messaged Doctor Sami if he wants to order any Senokot. Awaiting MD order.
--- NOTE | 2021-04-13 06:34 | NUR ---
ms rn note lab was not able to draw labs. per metal handler, patient is a hard stick.
--- NOTE | 2021-04-13 06:40 | NUR ---
ms rn note Doctor ordered via readback: Colace 100mg BID and Miralax 17 gm daily BOTH scheduled.
--- NOTE | 2021-04-13 07:30 | NUR ---
RN MS NOTES PT IN BED, AWAKE, ALERT AND ORIENTED, WITH COMPLAINT OF LEFT FOOT PAIN, NOT IN DISTRESS, CALL LIGHT WITHIN REACH, NO BLEEDING NOTED TO LEFT FOOT, DRESSING DRY, CLEAN AND INTACT, NEEDS ATTENDED.
[2021-04-13 08:00] VITALS: BP 117/90
[2021-04-13] MEDS: DULOXETINE HCL 30 MG CAPSULE.DR PO SCH (08:25)
[2021-04-13] MEDS: GABAPENTIN 300 MG CAPSULE PO SCH ×2 (08:26→12:59)
[2021-04-13] MEDS: PANTOPRAZOLE 40 MG VIAL IV SCH (08:26)
[2021-04-13 08:39] LABS: BASOPHILS % (AUTO) 0.5 % (0.0-2.0); EOSINOPHILS % (AUTO) 1.5 % (0.0-6.0); HEMATOCRIT 37 % (33-45); HEMOGLOBIN 12.8 g/dL (11.5-14.8); LYMPHOCYTES # (AUTO) 1.9 K/uL (0.8-4.8); LYMPHOCYTES % (AUTO) 42.1 % (20.0-44.0); MEAN CORPUSCULAR HGB CONC 35 g/dl (31.0-36.0); MEAN CORPUSCULAR VOLUME 95 fL (82-100); MONOCYTES # (AUTO) 0.4 K/uL (0.1-1.30); MONOCYTES % (AUTO) 9.2 % (2.0-12.0); NEUTROPHILS # (AUTO) 2.1 K/uL (1.8-8.9); NEUTROPHILS % (AUTO) 46.7 % (43.0-81.0); PLATELET COUNT (AUTO) 242 K/uL (150-450); WHITE BLOOD COUNT (AUTO) 4.6 K/uL (4.3-11.0)
[2021-04-13] MEDS ORDERED: DOCUSATE SODIUM 100 MG CAPSULE PO SCH (09:00)
[2021-04-13] MEDS ORDERED: POLYETHYLENE GLYCOL 3350 17 GM POWD.PACK PO SCH (09:00)
[2021-04-13 09:12] LABS: THYROID STIMULATING HORMONE 2.088 uIU/mL (0.358-3.74)
[2021-04-13 09:27] LABS: CREATININE 0.6 mg/dL (0.6-1.3); MAGNESIUM 1.8 mg/dL (1.8-2.4); PHOSPHORUS 4.6 mg/dL (2.5-4.9)
--- NOTE | 2021-04-13 13:16 | NUR ---
RN MS NOTES PT AWAKE, ALERT AND ORIENTED, PAIN MEDS GIVEN FOR PAIN MANAGEMENT, NOT IN DISTRESS, NO BLEEDING NOTED TO LEFT FOOT, DRESSING CLEAN, DRY AND INTACT, SEEN BY DR. RAY, DISCHARGE ORDER GIVEN, DISCHARGE AND MEDICATION INSTRUCTIONS PROVIDED TO PT, VERBALIZED UNDERSTANDING, BELONGINGS ACCOUNTED FOR, NEW PRESCRIPTION GIVEN TO PT, ASSISTED PT TO WHEELCHAIR GOING TO THE HOSPITAL LOBBY, LEFT VIA PRIVATE CAR IN STABLE CONDITION.
[2021-04-14] MEDS ORDERED: PANTOPRAZOLE 40 MG TABLET.DR PO SCH (09:00)
== END 2021-04-13 13:10 | disposition home or self-care (01) | DRG 314 ==
LOC: ER 23:31 → MED 04-12 02:05
PROVIDERS: ADMIT Internal Medicine; ATTEND Internal Medicine
PROC: 0SPQ04Z Removal of Internal Fixation Device from Left Toe Phalangeal Joint, Open Approach (ICD-10-PCS; principal; 2021-04-12)
DX: T84.84XA Pain due to internal orthopedic prosthetic devices, implants and grafts, initial encounter (principal); M79.7 Fibromyalgia; Q79.60 Ehlers-Danlos syndrome, unspecified; Y83.1 Surgical operation with implant of artificial internal device as the cause of abnormal reaction of the patient, or of later complication, without mention of misadventure at the time of the procedure; Y92.009 Unspecified place in unspecified non-institutional (private) residence as the place of occurrence of the external cause; Z88.1 Allergy status to other antibiotic agents; Z91.012 Allergy to eggs; Z91.018 Allergy to other foods; Z79.899 Other long term (current) drug therapy; Z87.81 Personal history of (healed) traumatic fracture; Z98.890 Other specified postprocedural states
CPT/HCPCS: 36415; 73630-TC; 80048-TC; 80061-TC; 83735-TC; 84100-TC; 84443-TC; 84703-TC; 85025-TC; 85610-TC; 86850-TC; 87081-TC; C9113; C9803; G0378; J1885; J2250; J2270; J2405; J3010; J3490; J7030

== ENCOUNTER 2021-07-15 23:29 | Emergency (ER) | payer OTHER ==
[~2021-07-15] VITALS: Ht 162.6 cm; Wt 68.0 kg
[~2021-07-15 23:29] MED LIST changes: -OXYC1TAB8 PO
[2021-07-15] MEDS ORDERED: LORAZEPAM INJ 2 MG/ML VIAL ONE (23:51)
--- NOTE | 2021-07-16 00:03 | NUR ---
BIBRA [facility] FROM STORE C/O BIZARRE BEHAVIOR. PATIENT ALERT AND ORIENTED X3. AMBULATORY WITH NON LABORED BREATHING. PLACED PATIENT ON BED 12 ON MONITOR AND POX.
[2021-07-16] MEDS ORDERED: HALOPERIDOL LACTATE INJ 5 MG/ML VIAL ONE (01:07)
[2021-07-16] MEDS ORDERED: diphenhydrAMINE HCL 50 MG/ML VIAL ONE (01:11)
[2021-07-16] MEDS ORDERED: HALOPERIDOL LACTATE INJ 5 MG/ML VIAL IM ONE (01:30)
[2021-07-16] MEDS ORDERED: diphenhydrAMINE HCL 50 MG/ML VIAL IM ONE (01:30)
--- NOTE | 2021-07-16 02:24 | NUR ---
CALLED HUMAN FACTORS ERGONOMIST TO DRAW.
[2021-07-16 02:37] LABS: BASOPHILS % (AUTO) 0.3 % (0.0-2.0); HEMATOCRIT 40 % (33-45); HEMOGLOBIN 14.1 g/dL (11.5-14.8); LYMPHOCYTES # (AUTO) 1.4 K/uL (0.8-4.8); LYMPHOCYTES % (AUTO) 16.3 % (20.0-44.0); MEAN CORPUSCULAR HGB CONC 35 g/dl (31.0-36.0); MEAN CORPUSCULAR VOLUME 93 fL (82-100); MONOCYTES # (AUTO) 0.5 K/uL (0.1-1.30); NEUTROPHILS # (AUTO) 6.9 K/uL (1.8-8.9); NEUTROPHILS % (AUTO) 77.4 % (43.0-81.0); PLATELET COUNT (AUTO) 284 K/uL (150-450); RED BLOOD CELL COUNT(AUTO) 4.29 MIL/uL (4.0-5.2); WHITE BLOOD COUNT (AUTO) 8.9 K/uL (4.3-11.0)
[2021-07-16 02:46] LABS: CALCIUM, SERUM 8.6 mg/dL (8.5-10.1); CREATININE 0.9 mg/dL (0.6-1.3); POTASSIUM 3.7 mmol/L (3.5-5.1)
[2021-07-16 02:51] LABS: ALBUMIN 4.4 g/dL (3.4-5.0); BILIRUBIN,DIRECT 0.1 mg/dL (0.0-0.2); BILIRUBIN,TOTAL 0.3 mg/dL (0.2-1.0); TOTAL PROTEIN, SERUM 8.2 g/dL (6.4-8.2)
--- NOTE | 2021-07-16 03:15 | NUR ---
CALLED BROTHER, NO ANSWER, INBOX FULL CANNOT LEAVE A MESSAGE.
--- NOTE | 2021-07-16 03:43 | NUR ---
PT IS STILL YELLING, YELLING AND BEING DISRUPTIVE. MEDICATION ORDERS BY
[2021-07-16] MEDS ORDERED: LORAZEPAM INJ 2 MG/ML VIAL ONE (03:51)
[2021-07-16] MEDS ORDERED: LORAZEPAM INJ 2 MG/ML VIAL IM ONE ×2 (04:00)
--- NOTE | 2021-07-16 05:30 | NUR ---
PT CALM AT THIS TIME RESTING. URINE COLLECTED AND SENT TO LAB
[2021-07-16 07:13] LABS: BILIRUBIN,URINE NEGATIVE (NEGATIVE); COLOR,URINE YELLOW (YELLOW); LEUKOCYTE ESTERASE ,URINE NEGATIVE (NEGATIVE); NITRITE, URINE NEGATIVE (NEGATIVE); PH,URINE 5.5 (5.0-8.0); PROTEIN,URINE NEGATIVE (NEGATIVE); UGLUCOSE NEGATIVE (NEGATIVE); UROBILINOGEN,URINE 0.2 EU/dL (0.2)
--- NOTE | 2021-07-16 07:49 | NUR ---
MOM CALLED WITH PHONE NUMBER [phone]
--- NOTE | 2021-07-16 08:01 | NUR ---
ASSESSED PT ON BED AWAKE AND ALERT, AAOX4, NOT IN RESPIRATORY DISTRESS, V/S STABLE, KEPT RESTED AND COMFORTABLE. PT STATED SHE WANTS TO BE DISCHARGED AND WILL CALL A [facility] HOME. AWARE.
[2021-07-16 08:15] LABS: BACTERIA,URINE None seen /HPF (None Seen); RBC,URINE NONE SEEN /HPF (0-2); SQUAMOUS EPITHELIAL CELL,UR Rare /HPF (None Seen); WBC,URINE 0-2 /HPF (0-3)
--- NOTE | 2021-07-16 08:15 | NUR ---
PT ABLE TO AMBULATE STRAIGHT WITHOUT ASSISTANCE. AWARE.
[2021-07-16 08:35] VITALS: BP 122/73
--- NOTE | 2021-07-16 08:35 | NUR ---
Patient discharged to home in stable condition. Written and verbal after care instructions given. Patient verbalizes understanding of instruction.
== END 2021-07-16 08:36 | disposition home or self-care (01) ==
LOC: ER 23:32
DX: F10.129 Alcohol abuse with intoxication, unspecified (principal); Y90.6 Blood alcohol level of 120-199 mg/100 ml; G93.40 Encephalopathy, unspecified; Q79.60 Ehlers-Danlos syndrome, unspecified; Z88.1 Allergy status to other antibiotic agents; Z91.012 Allergy to eggs; Z88.8 Allergy status to other drugs, medicaments and biological substances; Z91.018 Allergy to other foods; Z20.822 Contact with and (suspected) exposure to COVID-19
CPT/HCPCS: 36415; 80048; 80076; 80143; 80307; 80320; 81001; 82962; 85025; 87426; 96372 ×2; 99285; C9803; J1200; J1630; J2060 ×2; G0480